=== PATIENT | male | born 1935 | race Caucasian/White ===

== ENCOUNTER → 2016-07-02 | Outpatient (CLI) | payer OTHER ==
[~2016-07-02] MED LIST: ACETAMINOPHEN325 MG PO; AMLODIPINE BESY10 MG PO; AMLODIPINE PO; ASPIRIN81 MG PO; ATRAC-TAIN142 GM EXT; FUROSEMIDE40 MG PO; HUMALOG MI100 UNIT/5 SQ; HUMALOG MIX 75/10 ML SUBQ; HUMALOG100 U/ML SUBQ; HYDROCHLOROTHIA25 MG PO; LEVAQUIN750 M1 PO; LOVENOX40 MG/0.4 INJ; MELOXICAM15 MG PO; METOPROLOL SUCC50 MG PO; MOBIC15 MG PO; NOVOLOG100 U/ML; ORUDIS75 M1 PO; PERCOCET 10/3251 TAB PO; PERCOCET5/325 PO; RAMIPRIL10 MG PO; SANTYL15 G1 TP; SIMVASTATIN20 MG PO; SIMVASTATIN40 MG PO; TYLENOL325 M1 PO; VITAMIN B-121000 MC1 SL
--- NOTE | ~2016-07-02 | CT4 ---
[facility] A Service of [facility] / [facility] RADIOLOGY TEXT RESULTS PATIENT: DENIS MARTEL LOCATION: [facility] : 33 UNIT #: [id number] AGE: [address]: Dillon Blanco MD SEX: M ORDER DR: [id number] [facility] [address] [place], [place] [address] [id number] O MR#: [id number] Acc #: [id number] NAME: DENIS MARTEL : 1935 SEX: M STUDY DATE/TIME: 07/02/2016 11:26 UNIT: [facility] ROOM: STUDY DESCRIPTION: CT Abd and Pelv Wo Cont Attending Physician: Dillon Blanco M.D. Referring Physician: Dillon Blanco M.D. Ordering Physician: Dillon Blanco M.D. Primary Care Physician: Raad Cagle M.D. MEDICAL IMAGING REPORT This report is preliminary unless electronic signature is present EXAM CT abdomen and pelvis without contrast HISTORY Restaging colon cancer. Observation for metastatic disease. TECHNIQUE Unenhanced CT of the abdomen and pelvis. This CT exam was performed with one or more of the following radiation dose reduction techniques: automatic exposure control, adjustment of mA and/or kV according to patient size, and iterative reconstruction. COMPARISON 04/08/2016. FINDINGS ABDOMEN WITHOUT CONTRAST: The included lung bases are clear. Coronary artery calcification. No liver mass seen on this unenhanced study. The spleen, adrenal glands, pancreas unremarkable. Previous cholecystectomy. Bilateral renal cysts are unchanged. Bowel loops are non-dilated. There are a few uncomplicated sigmoid diverticula. Previous right hemicolectomy. PELVIS WITHOUT CONTRAST: Right posterior bladder diverticulum is unchanged. No pelvic mass. No aggressive appearing bone lesion. IMPRESSION 1. No convincing evidence for metastatic disease on this unenhanced study. 2. Incidental findings detailed above. [facility] A Service of [facility] / [facility] RADIOLOGY TEXT RESULTS PATIENT: DENIS MARTEL LOCATION: [facility] : 33 UNIT #: [id number] AGE: [address]: Dillon Blanco MD SEX: M ORDER DR: 3. Dictated by... Bruce Calderon M.D. THIS IS AN ELECTRONICALLY VERIFIED REPORT Bruce Calderon M.D. at 07/03/2016 7:01 AM EED/pcl TD: 07/02/2016 17:54 JOB #: [id number] MEDICAL IMAGING REPORT Page 1 of 1 COPY
== END | disposition home or self-care (01) ==
LOC: CCAT 11:04
DX: C18.9 Malignant neoplasm of colon, unspecified (principal)
CPT/HCPCS: 74176

== ENCOUNTER → 2016-10-08 | Outpatient (CLI) | payer OTHER ==
--- NOTE | ~2016-10-08 | US77 ---
[facility] A Service of [facility] RADIOLOGY TEXT RESULTS PATIENT: DENIS MARTEL LOCATION: [facility] : 33 UNIT #: [id number] AGE: [address]: Roly Simmons MD SEX: M ORDER DR: [id number] [facility] [address] [place], [place] [address] [id number] O MR#: [id number] Acc #: [id number] NAME: DENIS MARTEL : 1935 SEX: M STUDY DATE/TIME: 10/08/2016 11:04 UNIT: [facility] ROOM: STUDY DESCRIPTION: US Kidney Bilateral Complete Attending Physician: Nicanor Simmons M.D. Referring Physician: Nicanor Simmons M.D. Ordering Physician: Nicanor Simmons M.D. Primary Care Physician: Raad Cagle M.D. MEDICAL IMAGING REPORT This report is preliminary unless electronic signature is present EXAM Renal ultrasound HISTORY Chronic kidney disease and hypertension. TECHNIQUE Mascorro-scale and color Doppler sonographic imaging was obtained of the kidneys and bladder. FINDINGS No hydronephrosis is identified on either side. Right kidney has a cyst arising from it, measuring 4.3 x 3.7 x 4.1 cm. Patient's urinary bladder appears unremarkable. Patient also appears to have some cysts in the left kidney. No definite solid renal masses are seen. IMPRESSION Bilateral renal cysts. Dictated by... Laurie Garvey M.D. THIS IS AN ELECTRONICALLY VERIFIED REPORT Laurie Garvey M.D. at 10/09/2016 4:58 PM AFF/pcl TD: 10/08/2016 21:29 JOB #: [id number] MEDICAL IMAGING REPORT Page 1 of 1 COPY
--- NOTE | ~2016-10-08 | US78 ---
[facility] A Service of [facility] RADIOLOGY TEXT RESULTS PATIENT: DENIS MARTEL LOCATION: [facility] : 33 UNIT #: [id number] AGE: [address]: Roly Simmons MD SEX: M ORDER DR: [id number] [facility] [address] [place], [place] [address] [id number] O MR#: [id number] Acc #: [id number] NAME: DENIS MARTEL : 1935 SEX: M STUDY DATE/TIME: 10/08/2016 11:13 UNIT: [facility] ROOM: STUDY DESCRIPTION: US Kidney Duplex Complete Attending Physician: Nicanor Simmons M.D. Referring Physician: Nicanor Simmons M.D. Ordering Physician: Nicanor Simmons M.D. Primary Care Physician: Raad Cagle M.D. MEDICAL IMAGING REPORT This report is preliminary unless electronic signature is present EXAM Bilateral renal artery Doppler ultrasound. DATE 10/08/2016 HISTORY 80-year-old male, chronic kidney disease. Hypertension for several years. BUN 40, creatinine 2.0, eGFR 32.2. COMPARISON Bilateral renal ultrasound 10/08/2016. CT abdomen and pelvis without contrast 07/02/2016. PROCEDURE Real time kennedy-scale, color Doppler and spectral Doppler imaging is performed of the bilateral renal arteries. Estimated stenosis is based on standard NASCET methodology. Abdominal aortic caliber proximally is within normal limits measuring 2.2 cm, mid segment measuring 2.5 cm, distal segment measuring about 1.7 cm. Calcific atherosclerotic plaquing is seen within the abdominal aorta. Color and spectral Doppler flow is demonstrated throughout the abdominal aorta. Peak systolic velocity within the abdominal aorta proximal or juxtarenal segment 122 cm/sec. Limited evaluation of bilateral renal arteries due to obscuration by bowel gas. Right renal artery peak systolic velocity proximal segment 80.3 cm/sec, mid segment 84.6 cm/sec, distal segment 128.7 cm/sec. Right renal vein is [facility] A Service of [facility] RADIOLOGY TEXT RESULTS PATIENT: DENIS MARTEL LOCATION: [facility] : 33 UNIT #: [id number] AGE: [address]: Roly Simmons MD SEX: M ORDER DR: patent. Left renal artery peak systolic velocity proximal segment 370.2 cm/sec, mid segment 55.2 cm/sec, distal segment 57 cm/sec. Left renal vein is patent. Right intrarenal resistive indices vary between 0.77 to 0.84. Left intrarenal resistive indices vary between 0.74 to 0.84. Right renal to aortic ratio 1.2. Left renal to aortic ratio 3.0. IMPRESSION 1. 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 Left renal to aortic ratio 3.0. If surgical intervention is contemplated, consider dedicated CT angiography. 2. No hemodynamically significant stenosis is thought to be present within the right renal artery, based upon NASCET methodology. 3. Please refer to the bilateral renal ultrasound report from the same date for renal parenchymal findings. Dictated by... Kylee Guardado M.D. THIS IS AN ELECTRONICALLY VERIFIED REPORT Kylee Guardado M.D. at 10/09/2016 2:21 PM WILFREDO/yariel TD: 10/08/2016 21:50 JOB #: [id number] MEDICAL IMAGING REPORT Page 1 of 1 COPY
== END | disposition home or self-care (01) ==
LOC: CNIV 10:19
DX: N18.9 Chronic kidney disease, unspecified (principal); Q61.02 Congenital multiple renal cysts
CPT/HCPCS: 76770; 93975